=== PATIENT | female | born 1950 | race Two or more races ===

== ENCOUNTER 2020-03-15 16:37 | Emergency (ER) | payer MEDICARE, OTHER ==
[~2020-03-15] VITALS: Ht 152.4 cm; Wt 53.1 kg
[2020-03-15] MEDS ORDERED: SODIUM CHLORIDE 0.9% 1,000ML IVBOLUS ONE (17:00)
[2020-03-15] MEDS ORDERED: ONDANSETRON 2MG/ML, 2ML ONE (17:35)
[2020-03-15] MEDS ORDERED: MORPHINE SULFATE 4 MG/ML, 1ML ONE (17:35)
[2020-03-15 17:43] LABS: MICROSCOPIC NOT IND
--- NOTE | 2020-03-15 17:45 | NUR ---
SHAUN RN: MEDICATED FOR 10/10 ABD PAIN, PT TOLERATED WELL
[2020-03-15 17:53] LABS: BASOPHILS % (AUTO) 1 % (0-1); EOSINOPHILS % (AUTO) 5 % (1-7); LYMPHOCYTES % (AUTO) 32 % (22-44); MEAN CORPUSCULAR HEMOGLOBIN 30.9 pg (27.0-34.8); MEAN CORPUSCULAR HGB CONC 33.6 g/dL (32.4-35.8); MEAN PLATELET VOLUME 9.1 fL (7.4-10.4); MONOCYTES % (AUTO) 9 % (2-9); NEUTROPHILS % (AUTO) 54 % (42-75); PLATELET COUNT 220 x10^3/uL (130-400); RED BLOOD COUNT 4.44 x10^6/uL (3.82-5.3); RED CELL DISTRIBUTION WIDTH 13.7 % (9.6-15.2)
[2020-03-15 17:57] LABS: MD NO
[2020-03-15] MEDS ORDERED: MORPHINE SULFATE 4 MG/ML, 1ML IVPush PRN (18:00)
[2020-03-15] MEDS ORDERED: ONDANSETRON 2MG/ML, 2ML IVPush ONE (18:00)
--- NOTE | 2020-03-15 18:18 | NUR ---
WITH REASSESSMENT PAIN IMPROVED TO 04/07 LAB MADE FRAMER AWARE THAT LABS HEMOLYZED. FRAMER ASKED LAB TO DRAW WITH VENIPUNCTURE
--- NOTE | 2020-03-15 18:28 | NUR ---
LAB AT BEDSIDE FOR LAB RE-DRAW
[2020-03-15] MEDS ORDERED: LISI-170 PO (18:45)
[2020-03-15] MEDS ORDERED: ASPI-515 PO (18:45)
[2020-03-15] MEDS ORDERED: GABA-826 PO (18:45)
[2020-03-15] MEDS ORDERED: METF500T27 PO (18:45)
[2020-03-15] MEDS ORDERED: CYCL-259 PO (18:45)
[2020-03-15 18:46] LABS: ALANINE AMINOTRANSFERASE 23 U/L (12-78); ALBUMIN 3.6 g/dL (3.4-5.0); ANION GAP 4 mmol/L (5-15); CALCIUM 8.6 mg/dL (8.5-10.1); CHLORIDE 112 mmol/L (98-107); CREATININE 0.73 mg/dL (0.55-1.02)
[2020-03-15 18:48] LABS: ALKALINE PHOSPHATASE 68 U/L (45-117); BILIRUBIN,TOTAL 0.3 mg/dL (0.2-1.0); TOTAL PROTEIN 6.9 g/dL (6.4-8.2)
--- NOTE | 2020-03-15 18:57 | NUR ---
CT CALLED TO EXPEDITE EXAM REPORT TO TRINIDAD OLIVEIRA
[2020-03-15] MEDS ORDERED: OMNIPAQUE 350 MG/ML, 100ML BOTTLE ONE (19:15)
--- NOTE | 2020-03-15 20:31 | NUR ---
TASK RN: DC EDUCATION PROVIDED TO PT AND FAMILY MEMBER WHO ACTED AGRICULTURAL ADVISER FOR EDUCATION. PT DEMONSTRATES UNDERSTANDING AND DENIES FURTHER QUESTIONS. PT REPORTS IMPROVEMENT IN PAIN SINCE ARRIVAL. PT AMBULATED STEADILY TO DC WITH RN AND FAMILY MEMBER. FAMILY TO TRANSPORT PT HOME
[2020-03-15 20:32] VITALS: BP 130/60
== END 2020-03-15 20:34 | disposition home or self-care (01) ==
LOC: ED 17:51
DX: R10.31 Right lower quadrant pain (principal); R10.2 Pelvic and perineal pain; E11.9 Type 2 diabetes mellitus without complications
CPT/HCPCS: 36415; 74177; 80053; 81003; 83690; 85025; 96361; 96374; 96375; 99285; J2270; J2405; J7030; Q9967

== ENCOUNTER → 2020-07-02 | Outpatient (CLI) | payer MEDICARE ==
[~2020-07-02] MED LIST: ASPI-963 PO; ATOR20TA37 PO; CYCL10TA2 PO; GABA-826 PO; INSU100I13 SC; LISI-167 PO; LISI-170 PO; METF500T27 PO
[2020-07-02 11:34] LABS: ALBUMIN 4.3 g/dL (3.4-5.0); ANION GAP 5 mmol/L (5-15); CALCIUM 9.3 mg/dL (8.5-10.1); CHLORIDE 108 mmol/L (98-107)
[2020-07-02 11:43] LABS: ALANINE AMINOTRANSFERASE 31 U/L (12-78); ALKALINE PHOSPHATASE 81 U/L (45-117); BILIRUBIN,TOTAL 0.3 mg/dL (0.2-1.0); CREATININE 0.66 mg/dL (0.55-1.02)
== END | disposition home or self-care (01) ==
LOC: STAR 09:59
PROVIDERS: ATTEND Obstetrics & Gynecology Female Pelvic Medicine and Reconstructive Surgery
DX: Z01.818 Encounter for other preprocedural examination (principal); R10.2 Pelvic and perineal pain; N81.2 Incomplete uterovaginal prolapse; N39.3 Stress incontinence (female) (male); Z20.822 Contact with and (suspected) exposure to COVID-19
CPT/HCPCS: 36415; 80053; 93005; U0003

== ENCOUNTER 2020-07-08 07:26 | Day surgery (SDC) | payer MEDICARE ==
[~2020-07-08] VITALS: Ht 152.4 cm; Wt 52.7 kg
[2020-07-08] MEDS ORDERED: CHLORHEXIDINE 15 ML UDC ONE (07:57)
[2020-07-08] MEDS ORDERED: CHLORHEXIDINE 15 ML UDC PO ONE (08:00)
[2020-07-08] MEDS ORDERED: LACTATED RINGERS 1,000 ML IV SCH (08:00)
[2020-07-08 08:10] VITALS: BP 132/66
[2020-07-08] MEDS ORDERED: MIDAZOLAM 1 MG/ML, 2ML ONE (08:33)
[2020-07-08] MEDS ORDERED: DEXAMETHASONE 4 MG/ML, 1ML ONE (09:55)
[2020-07-08] MEDS ORDERED: LABETALOL 5MG/ML, 20ML IV PRN (10:00)
[2020-07-08] MEDS ORDERED: ACETAMINOPHEN 325 MG TABLET PO PRN (10:00)
[2020-07-08] MEDS ORDERED: hydrALAzine 20 MG/ML, 1ML IV PRN (10:00)
[2020-07-08] MEDS ORDERED: FENTANYL PF 100 MCG/2ML IV PRN (10:00)
[2020-07-08] MEDS ORDERED: PROMETHAZINE 25 MG/ML, 1ML IVPush PRN (10:00)
[2020-07-08] MEDS ORDERED: HYDROmorphone 1 MG/ML, 1ML INJ IVPush PRN (10:00)
[2020-07-08] MEDS ORDERED: MEPERIDINE/PF 25MG/0.5ML IVPush PRN (10:00)
[2020-07-08] MEDS ORDERED: morphine SULFATE 10 MG/ML, 1ML IVPush PRN (10:00)
[2020-07-08] MEDS ORDERED: OXYcodone 5 MG/5 ML ORAL.SOL UDC PO PRN (10:00)
[2020-07-08] MEDS ORDERED: HALOPERIDOL 5 MG/ML IV PRN (10:00)
[2020-07-08] MEDS ORDERED: CEFAZOLIN 1,000 MG ONE (10:21)
[2020-07-08] MEDS ORDERED: PROPOFOL 10 MG/ML, 20ML ONE (10:21)
[2020-07-08] MEDS ORDERED: ROCURONIUM 10MG/ML,5ML ONE (10:21)
[2020-07-08] MEDS ORDERED: GLYCOPYRROLATE 0.2MG/1ML, 5ML ONE (10:21)
[2020-07-08] MEDS ORDERED: NEOSTIGMINE 1 MG/ML, 10ML ONE (10:21)
[2020-07-08] MEDS ORDERED: ONDANSETRON 2MG/ML, 2ML ONE (10:21)
[2020-07-08] MEDS ORDERED: BUPIVACAINE/PF-EPI 0.25% 1:200K INFIL ONE (10:24)
[2020-07-08] MEDS ORDERED: FUROSEMIDE 20 MG/2 ML ONE (10:58)
[2020-07-08] MEDS ORDERED: FLUORESCEIN SODIUM 500 MG/5 ML ONE (10:58)
[2020-07-08] MEDS ORDERED: KETOROLAC 30 MG/1 ML ONE (11:17)
[2020-07-08] MEDS ORDERED: ACETAMINOPHEN 650 MG/20.3 ML UDC ONE (11:46)
[2020-07-08] MEDS ORDERED: OXYcodone 5 MG/5 ML ORAL.SOL UDC ONE (11:47)
== END 2020-07-08 16:00 | disposition home or self-care (01) ==
LOC: OUT 07:26
PROVIDERS: ATTEND Obstetrics & Gynecology Female Pelvic Medicine and Reconstructive Surgery
DX: N81.2 Incomplete uterovaginal prolapse (principal); N39.46 Mixed incontinence; D25.9 Leiomyoma of uterus, unspecified; N83.292 Other ovarian cyst, left side; N83.8 Other noninflammatory disorders of ovary, fallopian tube and broad ligament; E11.9 Type 2 diabetes mellitus without complications; I10 Essential (primary) hypertension; E78.5 Hyperlipidemia, unspecified; Z79.4 Long term (current) use of insulin; Z79.82 Long term (current) use of aspirin; Z79.899 Other long term (current) drug therapy
CPT/HCPCS: 57265; 57282; 57288; 58552; 82962; 88307; C1771; J0690; J1885; J1940; J2250; J2405; J2704; J2710; J1100